=== PATIENT | male | born 1995 | race Caucasian/White ===

== ENCOUNTER 2019-11-12 16:44 | Emergency (ER) | payer SELFPAY ==
[~2019-11-12] VITALS: Ht 177.8 cm; Wt 125.0 kg
[2019-11-12 17:34] LABS: CALCIUM 9.7 mg/dL (8.4-10.2); CREATININE, serum 0.85 (0.66-1.25); POTASSIUM 4.6 mmol/L (3.4-5.0)
[2019-11-12 18:00] LABS: BASO # 0.1 (0.0-0.2); BASO % 0.4 % (0.0-2.0); EOS # 1.2 (0.0-0.7); EOS % 8.6 % (0-4.0); GRAN # 9.4 (1.4-6.5); GRAN % 66.7 % (42.2-75.2); HEMATOCRIT 45.9 % (42.0-52.0); HEMOGLOBIN 15.4 g/dl (13.5-18.0); LYMPH # 2.5 (1.2-3.4); LYMPH % 17.5 % (20.0-51.0); MEAN CELL VOLUME 86 fl (80.0-100.0); MEAN CORPUSCULAR HEMOGLOBIN 29 pg (27.0-31.0); MEAN CORPUSCULAR HGB CONC 34 g/dl (33.0-37.0); MEAN PLATELET VOLUME 9.9 fl (7.4-10.4); MONO # 0.9 (0.1-0.6); MONO % 6.4 % (1.7-9.3); PLATELET COUNT 314 K/mm3 (130-400); RED BLOOD COUNT 5.33 M/mm3 (4.20-5.60); REDCELL DISTRIBUTION WIDTH-CV 12.5 % (11.5-14.5)
[2019-11-12 18:01] LABS: INR 1.2 (0.8-3.0); PROTHROMBIN TIME 12.9 SECONDS (9.7-12.8)
[2019-11-12] MEDS ORDERED: LOVENOX120 MG/0.8 SQ (19:48)
[2019-11-12] MEDS ORDERED: COUMADIN 5MG5 MG/TAB PO (19:50)
[2019-11-12 20:04] VITALS: BP 122/85; PULSE 102; TEMP 97.9
== END 2019-11-12 20:06 | disposition home or self-care (01) ==
LOC: COL.ER 16:44
PROVIDERS: Emergency Medicine
DX: I26.99 Other pulmonary embolism without acute cor pulmonale (principal); F17.210 Nicotine dependence, cigarettes, uncomplicated; Z79.01 Long term (current) use of anticoagulants
CPT/HCPCS: J1650; Q9967

== ENCOUNTER → 2019-11-16 | Outpatient (CLI) | payer SELFPAY ==
[~2019-11-16] MED LIST: COUMADIN 5MG5 MG/TAB PO; LOVENOX120 MG/0.8 SQ
== END ==
LOC: COL.LAB 15:43
DX: Z79.01 Long term (current) use of anticoagulants (principal)